=== PATIENT | female | born 1945 | race Caucasian/White ===

== ENCOUNTER 2020-09-25 16:42 | Outpatient (REF) | payer MEDICARE, SELFPAY | END 2020-09-25 16:43 | disposition home or self-care (01) | LOC: HO.LAB 16:42 | PROVIDERS: PCP Internal Medicine; Visit Provider Internal Medicine | DX: Z20.822 Contact with and (suspected) exposure to COVID-19 (principal) | CPT/HCPCS: 36415; C9803; U0003 ==

== ENCOUNTER 2023-06-30 15:02 | Outpatient (AMB) | payer MEDICARE, OTHER, SELFPAY ==
[2023-06-30 15:06] VITALS: RESP 14; BMI 35.7
--- NOTE | 2023-06-30 15:06 | MHC.OFFVIS ---
Intake Vital Signs 06/30/23 15:06 Height 5 ft 2 in Weight 195 lb BMI 35.7 Blood Pressure Location Lt radial Position Sitting Respiration 14 Intake Visit Reasons: Lumbar Stenosis and DJD Lumbar Spine Allergies No Known Allergies Allergy (Verified 06/30/23 15:07) Medication List - Last Reconciled 06/30/23 by Magali Verma LPN acetaminophen ER 1,300 mg PO Q8H PRN bupropion HCl 100 mg PO BID fluticasone propionate 50 mcg/actuation sprays intranasal lisinopril-hydrochlorothiazide 10-12.5 mg 1 tab PO DAILY tizanidine 2 mg PO DAILY PRN zolpidem 10 mg PO QPM HPI Lumbar Stenosis and DJD Lumbar Spine HPI Details 77-year-old female who presents today to the office for an evaluation of lumbar stenosis and DJD lumbar spine. The patient was referred by Dr. Moses. The patient reports back pain and knee pain. She states that her back pain radiates to the posterior side and down to the inguinal region. History is notable for prior lumbar spine surgery but over the years she has undergone numerous epidural steroid injections, facet interventions and trigger point injections with moderate relief. She used to have radiofrequency ablation so with excellent response at [facility]. At her most recent appointment with them, she was recommended spinal cord stimulator which she did not want to pursue and subsequently stopped seeing them. She is interested in resuming interventional therapy. She also has weakness in her knee for about a year now and is interested in options for her knee pain. She is using walker. Her groin pain worsens with lying down. Her last MRI scan was done at [facility]. It is not available for review today. 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 History is notable for craniotomy for AVM/aneurysm resection. [facility] Medical History (Updated 07/01/23 @ 11:14 by Alfonso Will MD) Insomnia Hypertension Asthma Surgical History (Updated 07/01/23 @ 11:14 by Alfonso Will MD) History of craniotomy Review of Systems Const All systems reviewed & are unremarkable except as noted in HPI and below Physical Exam Vital Signs: Last Vital Signs Resp 14 06/30/23 15:06 BMI result Body Mass Index 35.7 General: Appears afebrile. Alert and oriented. Mood and affect appropriate. Follows and participates in conversation appropriately. Respiratory effort is unlabored. Able to transition from sit to stand unassisted. Ambulates with bilaterally normal heel strike and toe off. Generalized tenderness to palpation overlying the lumbar spine, more pronounced towards the right side. There is a palpable soft tissue mass, potentially lipoma, overlying the right iliac fossa. It is exquisitely tender to palpation. Office Procedures Injection Trigger Point Multi Trigger point injection, ultrasound guided. Pre-procedure diagnosis: Myofascial pain Post-procedure diagnosis: Myofascial pain Site and number of trigger points: Right gluteus medius, gluteus gustavo, sacroiliac ligaments Solution: Total volume administered 10 ml (5 ml lidocaine 1% + 5 ml bupivacaine 0.25% mixed with Kenalog 40 mg). The procedure, its benefits, and its risks were explained to the patient and all questions were answered. A pulse oximeter monitor was attached and the patient was monitored throughout the procedure. Prior to the start of the procedure, a ?time out? was performed to confirm correct patient, procedure, and laterality. Trigger points were identified by manual palpation and marked. The skin was cleaned with Chloraprep. A 1.5 inch 25 G needle was used. The myofascial layers were identified using ultrasound and tender areas were injected under live ultrasound guidance. This process was repeated at each trigger point site. The patient tolerated the procedure well. The patient tolerated the procedure well, without complication. The patient denied any numbness, paresthesias, or weakness. Post-procedure vitals were recorded as part of the nursing discharge note in electronic medical record. Following a period of observation, the patient was discharged in stable condition with written discharge instructions. Note: An ultrasound image of the injection was taken and stored in the permanent record. Trigger Point Multiple: 14173- Trigger point injection =/>3 Results Reviewed Results Reviewed: No imaging is available for review. Assessment & Plan Assessment & Plan (1) Hip osteoarthritis: Code(s): M16.9 - Osteoarthritis of hip, unspecified (2) Spondylosis of lumbar spine: Code(s): M47.816 - Spondylosis without myelopathy or radiculopathy, lumbar region (3) Sacroiliac joint dysfunction: Code(s): M53.3 - Sacrococcygeal disorders, not elsewhere classified (4) Post laminectomy syndrome: Code(s): M96.1 - Postlaminectomy syndrome, not elsewhere classified (5) Myofascial pain syndrome: Code(s): M79.18 - Myalgia, other site Plan I ordered a x-ray of right hip for further evaluation of the hip osteoarthritis given her groin pain. Patient is status post trigger point injection, ultrasound guided, to tender points within the right iliac fossa. Patient tolerated procedure well. For her low back pain, we will schedule her for a bilateral diagnostic SIJ injection first. If the diagnostic SI joint injection is equivocal. will schedule her for a bilateral diagnostic L3-L4-L5 medial branch blocks for consideration of facet mediated pain. Discussed the risks and benefits of the procedure with the patient in detail. All questions were answered. The patient is on board with the plan. Justification for interventional therapy: ? Patient with average pain > 6/10 ? Patient has exhausted conservative therapy ? Patient unable to tolerate physical therapy due to pain Scribed for Dr. Will by Samm Aly, medical anthropology director, on 06/30/2023. I, Dr. Will, have personally reviewed and agree with the information entered by the scribe. Orders: Orders XR hip RT min 2V 06/30/23 M16.9 - Osteoarthritis of hip, unspecified Coding Level of Care Code New Pt Level 4 (05470) Diagnoses Hip osteoarthritis M16.9 Spondylosis of lumbar spine M47.816 Sacroiliac joint dysfunction M53.3 Post laminectomy syndrome M96.1 Myofascial pain syndrome M79.18 CPT Codes Details - Trigger Point Multiple: 85105- Trigger point injection =/>3 ([id number])
== END 2023-06-30 15:45 | disposition home or self-care (01) ==
PROVIDERS: PCP Internal Medicine; Visit Provider Internal Medicine
DX: M16.9 Osteoarthritis of hip, unspecified (principal); M47.816 Spondylosis without myelopathy or radiculopathy, lumbar region; M53.3 Sacrococcygeal disorders, not elsewhere classified; M96.1 Postlaminectomy syndrome, not elsewhere classified; M79.18 Myalgia, other site
CPT/HCPCS: 20553; 99204

== ENCOUNTER 2023-06-30 15:02 | Outpatient (REF) | payer MEDICARE, OTHER, SELFPAY ==
--- NOTE | ~2023-06-30 | XR_ITS ---
EXAMINATION: XR HIP, RIGHT CLINICAL INFORMATION: Chronic pain without injury. COMPARISON: None available. TECHNIQUE: AP and frog-leg lateral views of the right hip. FINDINGS: No fracture. Alignment is anatomic. Hip joint space is maintained. Soft tissues are unremarkable. XR/XR hip RT min 2V IMPRESSION: Normal right hip.
== END 2023-06-30 15:03 | disposition home or self-care (01) ==
LOC: HO.XRAY 15:02
PROVIDERS: PCP Internal Medicine; Visit Provider Internal Medicine
DX: M16.11 Unilateral primary osteoarthritis, right hip (principal); M79.18 Myalgia, other site; M47.816 Spondylosis without myelopathy or radiculopathy, lumbar region; M53.3 Sacrococcygeal disorders, not elsewhere classified; M96.1 Postlaminectomy syndrome, not elsewhere classified
CPT/HCPCS: 20553; 73502; J3301

== ENCOUNTER 2023-07-30 06:01 | Outpatient (REF) | payer MEDICARE, OTHER, SELFPAY ==
--- NOTE | ~2023-07-30 | FL_ITS ---
EXAMINATION: XR FLUOROSCOPY WITH IMAGES CLINICAL INFORMATION: Sacrococcygeal disorders, not elsewhere classified. COMPARISON: None available. TECHNIQUE: Fluoroscopy Supervised By: Dr. Alfonso Will. Fluoroscopy Time: 0.2 minutes. Cumulative Dose: 11.2 mGy. DAP: 1.06 Gycm2. Images: 4 FINDINGS: Images demonstrate needle placement over the bilateral sacrum. Surgical hardware seen in the lower lumbar sacral spine. FL/FL guidance in treatment room IMPRESSION: Fluoroscopy guidance for pain management procedure
== END 2023-07-30 06:02 | disposition home or self-care (01) ==
LOC: CF 06:01
PROVIDERS: Visit Provider Internal Medicine
DX: M53.3 Sacrococcygeal disorders, not elsewhere classified (principal); M17.12 Unilateral primary osteoarthritis, left knee
CPT/HCPCS: 27096; J1040; J2795; Q9967

== ENCOUNTER 2023-07-30 09:20 | Outpatient (AMB) | payer MEDICARE, OTHER, SELFPAY ==
--- OUTSIDE RECORDS SUMMARY | 2023-07-30 09:22 | XMS_ITS | Continuity of Care Document ---
Author Name Unknown Organization [facility] Address [address] [place] [address]- Care Team Providers Care Or Manager Name Role Phone Alfredo Rosado MD Primary Care Physician [id number] Date(s): 09/13/22 - 10/13/[facility] [address] [place] [address]- Allergies, Adverse Reactions, Alerts Substance Reaction Severity Status Adhesive Bandage Bee Stings Active Bee Stings Active Cats Active Dogs Active Medications acetaminophen/butalbital/caffeine 325 mg-50 mg-40 mg oral tablet 0 Refills, Maintenance, 08/29/22 14:31:00 EST, Partial fill upon patient request if the prescription is for a schedule II opioid drug. Start Date: 08/29/22 Status: Ordered atropine-diphenoxylate 0.025 mg-2.5 mg oral tablet Refills 0, Maintenance, 08/29/22 14:33:00 EST, Partial fill upon patient request if the prescription is for a schedule II opioid drug. Start Date: 08/29/22 Status: Ordered buPROPion 100 mg oral tablet 0 Refills, Maintenance, 08/29/22 14:31:00 EST, Partial fill upon patient request if the prescription is for a schedule II opioid drug. Start Date: 08/29/22 Status: Ordered chlordiazePOXIDE 25 mg oral capsule TAKE ONE CAPSULE BY MOUTH EVERY 8 HOURS NEEDED Start Date: 07/17/22 Status: Ordered diclofenac sodium 50 mg oral delayed release tablet 0 Refills, Maintenance, 08/29/22 14:33:00 EST, Partial fill upon patient request if the prescription is for a schedule II opioid drug. Start Date: 08/29/22 Status: Ordered doxycycline hyclate 100 mg oral tablet 0 Refills, Maintenance, 08/29/22 14:30:00 EST, Partial fill upon patient request if the prescription is for a schedule II opioid drug. Start Date: 08/29/22 Status: Ordered duloxetine 60 mg oral enteric coated capsule 0 Refills, Maintenance, 08/29/22 14:33:00 EST, Partial fill upon patient request if the prescription is for a schedule II opioid drug. Start Date: 08/29/22 Status: Ordered EpiPen 2-Ifeanyi = 0.3 mg, Intramuscular, Once, 0 Refills, Maintenance Start Date: 07/25/11 Status: Ordered gabapentin 300 mg oral capsule 1 capsule = 300 mg, By Mouth, 3 times a day, # 90 capsule, 1 Refills, Maintenance Start Date: 12/30/11 Status: Ordered levocetirizine 5 mg oral tablet 0 Refills, Maintenance, 08/29/22 14:31:00 EST, Partial fill upon patient request if the prescription is for a schedule II opioid drug. Start Date: 08/29/22 Status: Ordered Prempro 1 tablet, By Mouth, Daily, 0 Refills, Maintenance Start Date: 12/30/11 Status: Ordered Restasis 0.05% ophthalmic emulsion 1 drops, Eyes, Both, Maintenance, 07/17/22 11:32:00 EST, Partial fill upon patient request if the prescription is for a schedule II opioid drug. Start Date: 07/17/22 Status: Ordered tiZANidine 2 mg oral tablet Refills 0, Maintenance, 08/29/22 14:31:00 EST, Partial fill upon patient request if the prescription is for a schedule II opioid drug. Start Date: 08/29/22 Status: Ordered Tylenol 325 mg oral tablet 2 tablet, By Mouth, Every 4 hours, PRN for pain, # 120 tablet, 0 Refills, Maintenance, Tablet Start Date: 06/13/11 Status: Ordered zolpidem 10 mg oral tablet 1 tablet = 10 mg, By Mouth, Daily at bedtime, PRN for sleep, 0 Refills, Maintenance, 08/29/22 14:31:00 EST, Tablet, Partial fill upon patient request if the prescription is for a schedule II opioid drug. Start Date: 08/29/22 Status: Ordered Problem List Condition Confirmation Course Effective Dates Status Health St atus Informant Sacroiliac joint dysfunction of both sides Confirmed Active Obese class II Confirmed Active Patient Care team information Care Team Personnel Name: Alfredo Rosado MD Position: [facility] Outreach Member Role: PCP Address: Address: [address] [place] [address] [address] [place] [address]- Care Team Related Persons Name: MANDEEP CHOI Address: home [address] [place] [address] Name: PAO OLIVER Address: home [address] [place] [address]
--- OUTSIDE RECORDS SUMMARY | 2023-07-30 09:22 | XMS_ITS | Continuity of Care Document ---
Author Name Unknown Organization [facility] Address [address] [place] [address] [address], [address] [place] [address]- Care Team Providers Care Staff Training And Development Manager Name Role Phone Maurice Padilla MD Primary Care Phys[id number] - [facility]28[facility] [address] [place] [address] Drive, [address] [place], [place] [address] Attending Physician: Mayur Weinberg MD Referring Physician: Maurice Padilla MD Allergies, Adverse Reactions, Alerts Substance Reaction Severity Status Adhesive Bandage Bee Stings Active Bee Stings Active Cats Active Dogs Active Medications Abilify Tablet By Mouth, Daily, Maintenance, 07/02/11 16:12:51 Start Date: 07/02/11 Status: Ordered Aleve Caplet = 220 mg, By Mouth, Every 8 hours, 0 Refills, Maintenance Start Date: 06/13/11 Status: Ordered Butrans 5 mcg/hr transdermal film, extended release 1 patch, Intradermal, Every week, 0 Refills, Maintenance Start Date: 06/08/13 Status: Ordered EpiPen 2-Ifeanyi = 0.3 mg, Intramuscular, Once, 0 Refills, Maintenance Start Date: 07/25/11 Status: Ordered gabapentin 300 mg oral capsule 1 capsule = 300 mg, By Mouth, 3 times a day, # 90 capsule, 1 Refills, Maintenance Start Date: 12/30/11 Status: Ordered Hydrocodone = 5 mg, By Mouth, PRN Pain , Severe, 0 Refills, Maintenance Start Date: 06/08/13 Status: Ordered Prempro 1 tablet, By Mouth, Daily, 0 Refills, Maintenance Start Date: 12/30/11 Status: Ordered Tylenol 325 mg oral tablet 2 tablet, By Mouth, Every 4 hours, PRN for pain, # 120 tablet, 0 Refills, Maintenance, Tablet Start Date: 06/13/11 Status: Ordered Voltaren By Mouth, 0 Refills, Maintenance, 03/21/22 15:18:00 EDT, Partial fill upon patient request if the prescription is for a schedule II opioid drug. Start Date: 03/21/22 Status: Ordered Wellbutrin By Mouth, 0 Refills, Maintenance Start Date: 06/13/11 Status: Ordered Problem List Condition Effective Dates Status Health Status Inform ant Obese class II(Confirmed) Active Vital Signs Most recent to oldest [Reference Range]: 1 Height 160 cm (03/21/22 3:10 PM) Weight 95.5 kg (03/21/22 3:10 PM) Body Mass Index [18.5-24.99] 37.3 *>HHI* (03/21/22 3:10 PM)
--- OUTSIDE RECORDS SUMMARY | 2023-07-30 09:22 | XMS_ITS | Continuity of Care Document ---
Author Name Unknown Organization [facility] Address [address] [place] [address]- Care Team Providers Care Roving Court Reporter Name Role Phone Rama ROSARIO, Magdalena العراقي Primary Care Physician Encounter [facility] [id number] Date(s): 04/03/22 - 06/29/22 [facility] [address] [place] [address]- Attending Physician: Felisa Hoffmann MD Admitting Physician: Felisa Hoffmann MD Referring Physician: Maurice Pdailla MD Allergies, Adverse Reactions, Alerts Substance Reaction [...] Mouth, Daily, 0 Refills, Maintenance Start Date: 4/23/12 Status: Ordered Tylenol 325 mg oral tablet [...] Date: 06/13/11 Status: Ordered Problem List Condition Confirmation Course Effective Dates Status Health St atus Informant Obese class II Confirmed Active Patient Care team information Personnel Name: Rama ROSARIO, Magdalena العرايق Address: Address: [facility] [place], [place] [address]
--- OUTSIDE RECORDS SUMMARY | 2023-07-30 09:22 | XMS_ITS | Continuity of Care Document ---
Author Name Unknown Organization [facility] Address [address] [place] [address]- Care Team Providers Care Cold Roller Name Role Phone Maurice Padilla MD Primary Care Physician [phone] [id number] Date(s): 12/10/21 - 01/09/22 [facility] [place] [address] [place], [place] [address] Allergies, Adverse Reactions, Alerts Substance Reaction Severity [...] Maintenance, Tablet Start Date: 06/13/11 Status: Ordered Wellbutrin By Mouth, 0 Refills, Maintenance Start Date: 06/13/11 Status: Ordered
--- OUTSIDE RECORDS SUMMARY | 2023-07-30 09:22 | XMS_ITS | Continuity of Care Document ---
Author Name Unknown Organization [facility] Address [address] [place] [address]- Care Team Providers Care Florist Designer Name Role Phone Alfredo Rosado MD Primary Care Physician [phone] [place] [facility] [place] - 08/21/22 [facility] [address] [place] [address]- Allergies, Adverse Reactions, Alerts Substance Reaction Severity Status Adhesive Bandage Bee Stings Active Bee Stings Active Cats Active Dogs Active Medications chlordiazePOXIDE 25 mg oral capsule TAKE ONE CAPSULE BY MOUTH EVERY 8 HOURS NEEDED Start Date: 07/17/22 Status: Ordered EpiPen 2-Ifeanyi = 0.3 mg, Intramuscular, Once, 0 Refills, Maintenance Start Date: 07/25/11 Status: Ordered gabapentin 300 mg oral capsule 1 capsule = 300 mg, By Mouth, 3 times a day, # 90 capsule, 1 Refills, Maintenance Start Date: 12/30/11 Status: Ordered Prempro 1 tablet, By Mouth, Daily, 0 Refills, Maintenance Start Date: 12/30/11 Status: Ordered Restasis 0.05% ophthalmic emulsion 1 drops, Eyes, Both, Maintenance, 07/17/22 11:32:00 EST, Partial fill upon patient request if the prescription is for a schedule II opioid drug. Start Date: 07/17/22 Status: Ordered Tylenol 325 mg oral tablet 2 tablet, By Mouth, Every 4 hours, PRN for pain, # 120 tablet, 0 Refills, Maintenance, Tablet Start Date: 06/13/11 Status: Ordered Problem List Condition Confirmation Course Effective Dates Status Health St atus Informant Obese class II Confirmed Active Patient Care team information Care Team Personnel Name: Alfredo Rosado MD Position: S Outreach Member Role: PCP Address: Address: [address] [place] [address] [address] [place] [address]- Care Team Related Persons Name: MANDEEP CHOI Address: home [address] [place] [address] Name: PAO OLIVER Address: [address] [place] [address]
--- OUTSIDE RECORDS SUMMARY | 2023-07-30 09:22 | XMS_ITS | Continuity of Care Document ---
Author Name Unknown Organization [facility] Address [address] [place] [address]- Care Team Providers Care Aircraft Maintenance Technician Name Role Phone Alfredo Rosado MD Primary Care Physician [place] [facility] Date(s): 01/13/23 - 02/12/23 [facility] [address] [place] [address]- Attending Physician: Admtr, Isaias Allergies, Adverse Reactions, Alerts Substance Reaction Severity Status Adhesive Bandage Bee Stings Active Bee Stings Active Dogs Active Cats Active Medications acetaminophen/butalbital/caffeine 325 mg-50 mg-40 mg [...] Status: Ordered buPROPion 100 mg oral tablet TAKE ONE TABLET BY MOUTH TWICE A DAY Start Date: 01/13/23 Status: Ordered chlordiazePOXIDE 25 mg oral capsule TAKE ONE CAPSULE BY MOUTH EVERY 8 HOURS NEEDED Start Date: 07/17/22 Status: Ordered diclofenac 1% topical gel APPLY EXTERNALLY FOUR TIMES A DAY Start Date: 01/13/23 Status: Ordered diclofenac sodium 50 mg oral delayed release tablet 0 Refills, Maintenance, 08/29/22 14:33:00 EST, Partial fill upon patient request if the prescription is for a schedule II opioid drug. Start Date: 08/29/22 Status: Ordered EpiPen 2-Ifeanyi = 0.3 mg, Intramuscular, Once, 0 Refills, Maintenance Start Date: 07/25/11 Status: Ordered fluticasone 50 mcg/inh nasal spray APPLY TWO SPRAYS EVERY DAY IN EACH NOSTRIL Start Date: 01/13/23 Status: Ordered levocetirizine 5 mg oral tablet 0 Refills, Maintenance, 08/29/22 14:31:00 EST, Partial fill upon patient request if the prescription is for a schedule II opioid drug. Start Date: 08/29/22 Status: Ordered Mapap Arthritis Pain 650 mg oral tablet, extended release 2 tablet = 1,300 mg, By Mouth, Every 8 hours, PRN as needed for pain, # 24 tablet, 0 Refills, Maintenance, 12/04/22 15:46:00 EDT, ER Tablet, Partial fill upon patient request if the prescription is for a schedule II opioid drug. Start Date: 12/04/22 Status: Ordered Prempro 1 tablet, By Mouth, [...] opioid drug. Start Date: 08/29/22 Status: Ordered zolpidem 10 mg oral tablet [...] Confirmed Active Obese class II Confirmed Active Radiology * Event Display: MRI Spine, Non- Authored Date: Patient Care team information Care Team Personnel Name: Alfredo Rosado MD Position: S Outreach Member Role: PCP Address: Address: [address] [place] [address] [address] [place] [address]- Care Team Related Persons Name: MANDEEP CHOI Address: [address] [place] [address] Name: PAO OLIVER Address: [address] [place] [address]
--- OUTSIDE RECORDS SUMMARY | 2023-07-30 09:23 | XMS_ITS | Continuity of Care Document ---
Author Name Unknown Organization [facility] Address [address] [place] [address]- Care Team Providers Care Supervisor Hot Strip Mill Name Role Phone Alfredo Rosado MD Primary Care Physician [phone] En[place] [facility] [place] [id number] Date(s): 05/21/23 - 06/20/23 [facility] [address] [place] [address]- Allergies, Adverse Reactions, Alerts Substance Reaction Severity [...] Team Personnel Name: Alfredo Rosado MD Position: [facility] Outreach Member Role: PCP Address: Address: [address] [place] [address] [address] [place] [address]- Care Team Related Persons Name: MANDEEP CHOI Address: home [address] [place] [address] Name: PAO OLIVER Address: home [address] [place] [address]
--- OUTSIDE RECORDS SUMMARY | 2023-07-30 09:23 | XMS_ITS | Continuity of Care Document ---
Author Name Unknown Organization [facility] Address [address] [place] [address]- Care Team Providers Care Crm Marketing Executive Name Role Phone Maurice Padilla MD Primary Care Physician [phone] [id number] Date(s): 10/30/21 - 01/11/22 [facility] [place] [address] [place] [address]- Attending Physician: Betty Whitfield NP Allergies, Adverse Reactions, Alerts Substance Reaction Severity [...]
--- OUTSIDE RECORDS SUMMARY | 2023-07-30 09:23 | XMS_ITS | Continuity of Care Document ---
Author Name Unknown Organization [facility] Address [address] [place] [address]- Care Team Providers Care Bicycle Rental Clerk Name Role Phone Rama ROSARIO, Magdalena العراقي Primary Care Physician [facility] [id number] Date(s): 03/28/22 - 06/07/22 [facility] [address] [place] [address]- Attending Physician: Twin Torres MD Admitting Physician: Twin Torres MD Referring Physician: Mayur Weinberg MD Allergies, Adverse Reactions, Alerts Substance Reaction [...] team information Personnel Name: Rama ROSARIO, Magdalena العراقي Address: Address: [address] [place] [address]
--- OUTSIDE RECORDS SUMMARY | 2023-07-30 09:23 | XMS_ITS | Continuity of Care Document ---
Author Name Unknown Organization [facility] Address [address] [place] [address]- Care Team Providers Care Insurance Sales Supervisor Name Role Phone Alfredo Rosado MD Primary Care Physician [phone] [id number] Date(s): 08/13/22 - 09/12/22 [facility] [address] [place] [address]- Allergies, Adverse Reactions, Alerts Substance Reaction Severity [...] Team Personnel Name: Alfredo Rosado MD Position: [facility] Outreach Member Role: PCP Address: Address: [address] [place] [address] [address] [place] [address]- Care Team Related Persons Name: MANDEEP CHOI Address: [address] [place] [address] Name: PAO OLIVER Address: [address] [place] [address]
--- OUTSIDE RECORDS SUMMARY | 2023-07-30 09:23 | XMS_ITS | Continuity of Care Document ---
Author Name Unknown Organization [facility] Address [address] [place] [address] [address], [address] [place] [address]- Care Team Providers Care Wealth Management Advisor Name Role Phone Rama ROSARIO, Magdalena العراقي Primary Care Physician [phone] [place] [facility] [place]22 - 04/26/22 [facility] [address] [place] [address] Drive, [address] [place], [place] [address] Allergies, Adverse Reactions, Alerts Substance Reaction Severity [...]
--- OUTSIDE RECORDS SUMMARY | 2023-07-30 09:23 | XMS_ITS | Continuity of Care Document ---
Author Name Unknown Organization [facility] Address [address] [place] [address] [address], [address] [place] [address]- Care Team Providers Care Pile Driving Technician Name Role Phone Rama ROSARIO, Magdalena العراقي Primary Care Physician [id number] Date(s): 03/21/22 - 04/20/22 [facility] [address] [place] [address] Drive, [address] [place], [place] [address] Attending Physician: Admjeanine, [id number] Admitting Physician: Admtr, Isaias Referring Physician: Admtr, Ar8 Allergies, Adverse Reactions, Alerts Substance Reaction Severity Status Adhesive Bandage Bee Stings Active Bee Stings Active Dogs Active Cats Active Medications Abilify Tablet By Mouth, Daily, [...]
--- OUTSIDE RECORDS SUMMARY | 2023-07-30 09:23 | XMS_ITS | Continuity of Care Document ---
Author Name Unknown Organization [facility] Primary Car e [place] Address [address] [place] [address]- Care Team Providers Care Grain I Farmworker Name Role Phone Maurice Padilla MD Primary Care Physician Encounter [facility] NBR [id number] Date(s): 12/12/21 - 01/11/22 [facility] [place] [address] [place], [place] [address] Attending Physician: Isaias Jensen Admitting Physician: AdmIsaias solorzano Referring Physician: AdmtrIsaias Allergies, Adverse Reactions, Alerts Substance Reaction Severity [...]
--- OUTSIDE RECORDS SUMMARY | 2023-07-30 09:23 | XMS_ITS | Continuity of Care Document ---
Author Name Unknown Organization [facility] Address [address] [place] [address]- Care Team Providers Care Buggy Operator Name Role Phone Rama ROSARIO, Magdalena العراقي Primary Care Physician [phone] Encounter [facility] [id number] Date(s): 04/02/22 - 05/02/22 [facility] [address] [place] [address]- Allergies, Adverse Reactions, Alerts Substance Reaction Severity [...] Status Inform ant Obese class II(Confirmed) Active Care Team Personnel Name: Magdalena Ontiveros MD Address: [address] [place] [address]
--- OUTSIDE RECORDS SUMMARY | 2023-07-30 09:23 | XMS_ITS | Continuity of Care Document ---
Author Name Unknown Organization [facility] Address [address] [place] [address]- Care Team Providers Care Clerk Name Role Phone Alfredo Rosado MD Primary Care Physician [phone] Encounter [facility] Date(s): 02/18/23 - 03/20/23 [facility] [address] [place] [address]- Allergies, Adverse Reactions, Alerts Substance Reaction Severity [...] Team Personnel Name: Alfredo Rosado MD Position: [facility] Outreach Member Role: PCP Address: Address: [address] [place] [address] [address] [place] [address]- Care Team Related Persons Name: MANDEEP CHOI Address: home [address] [place] [address] Name: PAO OLIVER Address: home [address] [place] [address]
--- OUTSIDE RECORDS SUMMARY | 2023-07-30 09:23 | XMS_ITS | Continuity of Care Document ---
Author Name Unknown Organization [facility] Address [address] [place] [address]- Care Team Providers Care Polysomnographer Name Role Phone Alfredo Rosado MD Primary Care Physician [place] [facility] Date(s): 10/23/22 - 11/22/22 [facility] [address] [place] [address]- Allergies, Adverse Reactions, Alerts Substance Reaction Severity [...] 90 capsule, 1 Refills, Maintenance Start Date: 4/23/12 Status: Ordered levocetirizine 5 mg oral tablet [...] Team Personnel Name: Alfredo Rosado MD Position: [facility] Outreach Member Role: PCP Address: Address: [address] [place] [address] [address] [place] [address]- Care Team Related Persons Name: MANDEEP CHOI Address: home [address] [place] [address] Name: PAO OLIVER Address: home [address] [place] [address]
--- OUTSIDE RECORDS SUMMARY | 2023-07-30 09:23 | XMS_ITS | Continuity of Care Document ---
Author Name Unknown Organization [facility] Address [address] [place] [address]- Care Team Providers Care Program Evaluation Consultant Name Role Phone Alfredo Rosado MD Primary Care Physician [phone] Encounter [facility] Date(s): 10/21/22 - 11/20/22 [facility] [address] [place] [address]- Allergies, Adverse Reactions, Alerts Substance Reaction Severity [...] Team Personnel Name: Alfredo Rosado MD Position: [facility] Outreach Member Role: PCP Address: Address: [address] [place] [address] [address] [place] [address]- Care Team Related Persons Name: MANDEEP CHOI Address: home [address] [place] [address] Name: PAO OLIVER Address: home [address] [place] [address]
[2023-07-30 09:30] VITALS: BP 136/82; PULSE 72; RESP 16; O2SAT 98; BMI 35.7
--- NOTE | 2023-07-30 09:30 | A.OFFVIS_ITS ---
Intake Vital Signs 07/30/23 09:30 07/30/23 10:37 Height 5 ft 2 in 5 ft 2 in Weight 195 lb BMI 35.7 BP 136/82 132/84 Blood Pressure Location Lt brachial Lt brachial Position Sitting Sitting Respiration 16 16 Pulse 72 88 Pulse Source Pulse Oximeter Pulse Oximeter Pulse Oximetry (%) 98 95 Oxygen Delivery Method Room Air Room Air Comment Pre-Op Post-Op Intake Visit Reasons: maurice Dx SIJ inj/Left theraputic knee inj Allergies No Known Allergies Allergy (Verified 06/30/23 15:07) HPI maurice Dx SIJ inj/Left theraputic knee inj HPI Details Patient presents for scheduled procedure. Denies any recent cough, cold, infection, fever or other significant changes in medical history since last office visit. [facility] Medical History (Updated 07/30/23 @ 17:08 by Alfonso Will MD) Insomnia Hypertension Asthma Surgical History (Updated 07/01/23 @ 11:14 by Alfonso Will MD) History of craniotomy Physical Exam Vital Signs: Last Vital Signs Pulse 88 07/30/23 10:37 Resp 16 07/30/23 10:37 BP 132/84 07/30/23 10:37 Pulse Ox 95 07/30/23 10:37 Oxygen Delivery Method Room Air 07/30/23 10:37 BMI result Body Mass Index 35.7 Office Procedures Joint Injection/Drain Joint Injection/Drain Details: Sacroiliac Joint Injection, bilateral The procedure, its benefits, and its risks were explained and written informed consent was obtained from the patient. Immediately prior to starting the procedure, a time-out safety check was conducted. The patient's identi fication, procedure name, procedure site, and procedure laterality were confirmed with the patient. ? Patient was placed prone on the fluoroscopy table and the lumbosacral area was prepped using ChloraPrep and draped with sterile drapein standard fashion. The C-arm was rotated in a contralateral oblique fashion until the medial border of the iliac crest no longer foreshadowed the posterior sacroiliac joint line. The skin and subcutaneous tissue was anesthetized using 1 mL of 0.75% plain lidocaine with 1.5-inch 25-gauge needle in the middle region of the joint line.? A 3.5-inch 22-gauge spinal needle with small bend on the tip was slowly advanced towards the joint line, coaxial to the x-ray beam. Once bony content was obtained, the needle was easily slid into the intra-articular space.? Intra- articular needle position was confirmed using lateral fluoroscopy.? A total volume of 2 mL of solution containing 26 mg Depomedrol and rest 0.5% of ropivacaine was injected intra-articularly. The stylet was reinserted and needle was removed. The same procedure was repeated on the contralateral side. The patient tolerated the procedure well. Patient denied any lower extremity weakness or numbness. Patient was observed for 30 min and was discharged after fulfilling the standard discharge criteria. Coding 27038 - Sacroiliac Procedure code (CPT) selection complete Joint Injection/Drain Joint Injection/Drain Primary Site: left knee Prep: site was prepped using sterile technique Injected: DepoMedrol (26 mg), in the joint and other (2 mL 0.5% ropivacaine) Approach Used: anteromedial Procedure: The patient tolerated the procedure well Coding Details: No imaging was used for this procedure. Procedure code (CPT) selection complete Assessment & Plan Assessment & Plan (1) Sacroiliac joint dysfunction: Code(s): M53.3 - Sacrococcygeal disorders, not elsewhere classified (2) Osteoarthritis of left knee: Code(s): M17.12 - Unilateral primary osteoarthritis, left knee Plan Patient is status post bilateral intra-articular sacroiliac joint injections under fluoroscopy and left knee intra-articular injection based on manual palpation. Patient tolerated procedure well and was discharged home in stable condition with discharge instructions. All questions were answered. We will follow-up via telephone or in clinic to assess response to therapy. A follow-up appointment was made during today's visit. Orders: Orders FL guidance in treatment room Today M53.3 - Sacrococcygeal disorders, not elsewhere classified Coding Level of Care Code Procedure Only Diagnoses Sacroiliac joint dysfunction M53.3 Osteoarthritis of left knee M17.12 CPT Codes Coding - Joint 9: 34469 - Sacroiliac ([id number])
[2023-07-30 10:37] VITALS: BP 132/84; PULSE 88; RESP 16; O2SAT 95
== END 2023-07-30 10:42 | disposition home or self-care (01) ==
LOC: HO.PMCPRC 09:20
PROVIDERS: PCP Internal Medicine; Visit Provider Internal Medicine
DX: M53.3 Sacrococcygeal disorders, not elsewhere classified (principal); M17.12 Unilateral primary osteoarthritis, left knee
CPT/HCPCS: 27096

== ENCOUNTER 2023-08-04 15:26 | Outpatient (AMB) | payer MEDICARE, OTHER, SELFPAY ==
--- NOTE | 2023-08-04 15:27 | MHC.OFFVIS ---
Intake Vital Signs 08/04/23 15:29 Height 5 ft 2 in Weight 195 lb BMI 35.7 BP 120/61 Blood Pressure Location Rt radial Position Sitting Respiration 12 Pulse Source Pulse Oximeter Intake Visit Reasons: s/p maurice dx SIJ inj/Confirmed Allergies No Known Allergies Allergy (Verified 08/04/23 15:33) HPI s/p maurice dx SIJ inj/Confirmed HPI Details 77-year-old female who presents today to the office for a status post bilateral diagnostic SIJ injection. The patient reports 90% relief following the procedure for back pain for 2-3 days before her pain started coming back. She has pain in her buttock region. She is not able to stand or sleep straight. Her left knee pain had improved. Her right knee is bothersome. She is unable to stand. She is able to lay down on the bed without any pain. She had a left Fry's cyst that was drained, but her pain has started worsening since. Past procedures: 07/30/23: Diagnostic Sacroiliac Joint Injection, bilateral: 90% relief for 2 days. 06/30/23: Trigger point injection: % relief. [facility] Medical History (Updated 08/07/23 @ 12:39 by Alfonso Will MD) Insomnia Hypertension Asthma Surgical History (Updated 07/01/23 @ 11:14 by Alfonso Will MD) History of craniotomy Review of Systems Const All systems reviewed & are unremarkable except as noted in HPI and below Physical Exam Vital Signs: Last Vital Signs Resp 12 08/04/23 15:29 BP 120/61 08/04/23 15:29 BMI result Body Mass Index 35.7 General: Appears afebrile. Alert and oriented. Mood and affect appropriate. Follows and participates in conversation appropriately. Respiratory effort is unlabored. Able to transition from sit to stand unassisted. Ambulates with bilaterally normal heel strike and toe off. Office Procedures Joint Injection/Drain Joint Injection/Drain Details: Right knee intraarticular injection Primary Site: right knee Prep: site was prepped using sterile technique Injected: 40 mg of, Kenalog, with 3 mL of, 1% plain lidocaine and in the joint Approach Used: anteromedial Procedure: The patient tolerated the procedure well Coding 27617 - Large joint Procedure code (CPT) selection complete Results Reviewed Results Reviewed: No imaging is available for review. 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 Patient tolerated procedure well and was discharged home in stable condition with discharge instructions. All questions were answered. For her bilateral sacroiliac joint pain, I discussed bilateral cluneal nerve stimulation therapy. This is especially important since a want to minimize her total steroid intake in the setting of multiple pain generators. I will refer her for psychology clearance. Once we receive psychology clearance we will schedule her for a trial of bilateral cluneal nerve stimulators. If these are helpful we will proceed with implant. If the cluneal nerve stimulation is not helpful, we can consider other therapeutic options for sacroiliac joint related pain. Scribed for Dr. Will by Samm Aly, medical staff services coordinator, on 08/04/2023. I, Dr. Will, have personally reviewed and agree with the information entered by the scribe. Coding Level of Care Code Est Pt Level 4 (91176) Diagnoses Sacroiliac joint dysfunction M53.3 Osteoarthritis of knees, bilateral M17.0 Cluneal neuropathy G58.8 CPT Codes Coding - 21289 Large joint: 11569 - Large joint ([id number])
[2023-08-04 15:29] VITALS: BP 120/61; RESP 12; BMI 35.7
== END 2023-08-04 16:01 | disposition home or self-care (01) ==
PROVIDERS: PCP Internal Medicine; Visit Provider Internal Medicine
DX: M53.3 Sacrococcygeal disorders, not elsewhere classified (principal); M17.0 Bilateral primary osteoarthritis of knee; G58.8 Other specified mononeuropathies
CPT/HCPCS: 99214

== ENCOUNTER → 2023-08-04 15:26 | Outpatient (BNVA) | payer MEDICARE, OTHER, SELFPAY | PROVIDERS: PCP Internal Medicine; Visit Provider Internal Medicine | DX: M17.0 Bilateral primary osteoarthritis of knee (principal); M53.3 Sacrococcygeal disorders, not elsewhere classified; G58.8 Other specified mononeuropathies | CPT/HCPCS: 20610; J0665; J3301 ==

== ENCOUNTER 2023-09-12 11:00 | Outpatient (AMB) | payer MEDICARE, OTHER, SELFPAY ==
--- NOTE | 2023-09-12 11:09 | MHC.OFFVIS ---
Intake Vital Signs 09/12/23 11:11 Height 5 ft 2 in Weight 195 lb BMI 35.7 Blood Pressure Location Rt brachial Position Sitting Respiration 12 Pulse 61 Pulse Source Pulse Oximeter Pulse Oximetry (%) 96 Oxygen Delivery Method Room Air Intake Visit Reasons: CONTINUOS PAIN BACK OF LEFT KNEE Allergies No Known Allergies Allergy (Verified 09/12/23 11:13) Medication List - Last Reconciled 09/12/23 by Magali Verma LPN acetaminophen ER 1,300 mg PO Q8H PRN bupropion HCl 100 mg PO BID fluticasone propionate 50 mcg/actuation sprays intranasal lisinopril-hydrochlorothiazide 10-12.5 mg 1 tab PO DAILY tizanidine 2 mg PO DAILY PRN zolpidem 10 mg PO QPM HPI CONTINUOS PAIN BACK OF LEFT KNEE HPI Details 77-year-old female who presents today to the office for a continuous pain in the back of the left knee. The patient reports pain in the back and left knee. She reports radiating back pain down to her leg when bending down. She has a history of scoliosis. She has not completed psychological clearance yet. She had multiple back surgeries in the past. We reviewed her MRI scan results. Past procedures: 08/04/23: Right knee intraarticular injection: % relief. 07/30/23: Diagnostic Sacroiliac Joint Injection, bilateral: 90% relief for 2 days. 06/30/23: Trigger point injection: % relief. [facility] Medical History (Updated 08/07/23 @ 12:39 by Alfonso Will MD) Insomnia Hypertension Asthma Surgical History (Updated 07/01/23 @ 11:14 by Alfonso Will MD) History of craniotomy Review of Systems Const All systems reviewed & are unremarkable except as noted in HPI and below Physical Exam Vital Signs: Last Vital Signs Pulse 61 09/12/23 11:11 Resp 12 09/12/23 11:11 Pulse Ox 96 09/12/23 11:11 Oxygen Delivery Method Room Air 09/12/23 11:11 BMI result Body Mass Index 35.7 General: Appears afebrile. Alert and oriented. Mood and affect appropriate. Follows and participates in conversation appropriately. Respiratory effort is unlabored. Able to transition from sit to stand unassisted. Ambulates with bilaterally normal heel strike and toe off. Ultrasound exam of the knee did not reveal any obvious collections or Fry's cysts. Results Reviewed Results Reviewed: No imaging is available for review. Assessment & Plan Assessment & Plan (1) Post laminectomy syndrome: Code(s): M96.1 - Postlaminectomy syndrome, not elsewhere classified (2) Osteoarthritis of knees, bilateral: Code(s): M17.0 - Bilateral primary osteoarthritis of knee Plan Pain symptoms could be secondary to post-laminectomy syndrome or isolated to the left knee. Discussed temporary nerve stimulator for isolated knee pain vs. spinal cord stimulator for post-laminectomy syndrome and possible lumbar radiculitis presenting as posterior knee pain. Will place a referral for psychology clearance. Once we have received psychology clearance, we will plan for trial of spinal cord stimulator ([employer]). The patient will receive a call from [facility] for the psychology assessment. Scribed for Dr. Will by Samm Aly, claim review medical director, on 09/12/2022. I, Dr. Will, have personally reviewed and agree with the information entered by the scribe. Coding Level of Care Code Est Pt Level 4 (16064) Diagnoses Post laminectomy syndrome M96.1 Osteoarthritis of knees, bilateral M17.0
[2023-09-12 11:11] VITALS: PULSE 61; RESP 12; O2SAT 96; BMI 35.7
== END 2023-09-12 11:40 | disposition home or self-care (01) ==
PROVIDERS: PCP Internal Medicine; Visit Provider Internal Medicine
DX: M96.1 Postlaminectomy syndrome, not elsewhere classified (principal); M17.0 Bilateral primary osteoarthritis of knee
CPT/HCPCS: 99214

== ENCOUNTER → 2023-09-12 11:00 | Outpatient (BNVA) | payer MEDICARE, OTHER, SELFPAY | PROVIDERS: PCP Internal Medicine; Visit Provider Internal Medicine | DX: M96.1 Postlaminectomy syndrome, not elsewhere classified (principal); M17.0 Bilateral primary osteoarthritis of knee | CPT/HCPCS: 99212 ==

== ENCOUNTER 2023-11-07 11:28 | Outpatient (AMB) | payer MEDICARE, OTHER, SELFPAY ==
[2023-11-07 11:45] VITALS: BP 133/79; PULSE 57; RESP 12; O2SAT 98; BMI 35.7
--- NOTE | 2023-11-07 11:45 | A.OFFVIS_ITS ---
Intake Vital Signs 11/07/23 11:45 Height 5 ft 2 in Weight 195 lb BMI 35.7 BP 133/79 Blood Pressure Location Lt brachial Position Sitting Respiration 12 Pulse 57 Pulse Source Pulse Oximeter Pulse Oximetry (%) 98 Oxygen Delivery Method Room Air Intake Visit Reasons: Follow Up Back Pain Allergies No Known Allergies Allergy (Verified 09/12/23 11:13) HPI Follow Up Back Pain HPI Details 77-year-old female who presents today to the office for a follow-up back pain. She reports back pain. She describes it as shooting pain down to the leg. She reports worsening of the knee and foot pain. She had had a SIJ injection in the past with good relief. She received an injection in her left arm by Dr. Escamilla, and an x-ray showed arthritis. She also received an injection in the knee. She is interested in repeating the injections for knee pain and back pain. She had not received any gel injections in the past. She saw the vascular surgeon about two years ago. Past procedures: 08/04/23: Right knee intraarticular inje ction: % relief. 07/30/23: Diagnostic Sacroiliac Joint In jection, bilateral: 90% relief for 2 days. 06/30/23: Trigger point injection: % rel ief. [facility] Medical History (Updated 08/07/23 @ 12:39 by Alfonso Will MD) Insomnia Hypertension Asthma Surgical History (Updated 07/01/23 @ 11:14 by Alfonso Will MD) History of craniotomy Review of Systems Const All systems reviewed & are unremarkable except as noted in HPI and below Physical Exam Vital Signs: Last Vital Signs Pulse 57 11/07/23 11:45 Resp 12 11/07/23 11:45 BP 133/79 11/07/23 11:45 Pulse Ox 98 11/07/23 11:45 Oxygen Delivery Method Room Air 11/07/23 11:45 BMI result Body Mass Index 35.7 General: Appears afebrile. Alert and oriented. Mood and affect appropriate. Follows and participates in conversation appropriately. Respiratory effort is unlabored. Able to transition from sit to stand unassisted. Ambulates with bilaterally normal heel strike and toe off. Severe medial tenderness on both knees. Office Procedures Joint Injection/Drain Joint Injection/Drain Details: Bilateral intraarticular Kenalog injections Primary Site: right knee Secondary Site: left knee Prep: site was prepped using aseptic technique and site was prepped using sterile technique Injected: 20 mg of (on each side), Kenalog and in the joint Approach Used: anteromedial Procedure: The patient tolerated the procedure well Coding 34068 - Large joint (bilateral) Procedure code (CPT) selection complete Results Reviewed Results Reviewed: No imaging is available for review. Assessment & Plan Assessment & Plan (1) Osteoarthritis of knees, bilateral: Code(s): M17.0 - Bilateral primary osteoarthritis of knee Plan Patient is status post bilateral intraarticular Kenalog injections today. Patient tolerated procedure well and was discharged home in stable condition with discharge instructions. All questions were answered. We will consider Durolane injection in the future for knee pain secondary to osteoarthritis. Scribed for Dr. Will by Samm Aly, medical accounting clerk, on 11/07/2023. I, Dr. Will, have personally reviewed and agree with the information entered by the scribe. Coding Level of Care Code Procedure Only Diagnoses Osteoarthritis of knees, bilateral M17.0 CPT Codes Coding - 02787 Large joint: 73998 - Large joint ([id number])
== END 2023-11-07 12:06 | disposition home or self-care (01) ==
PROVIDERS: PCP Internal Medicine; Visit Provider Internal Medicine
DX: M17.0 Bilateral primary osteoarthritis of knee (principal)
CPT/HCPCS: 20610

== ENCOUNTER → 2023-11-07 11:28 | Outpatient (BNVA) | payer MEDICARE, OTHER, SELFPAY | PROVIDERS: PCP Internal Medicine; Visit Provider Internal Medicine | DX: M17.0 Bilateral primary osteoarthritis of knee (principal) | CPT/HCPCS: 20610; J2795; J3301 ==

== ENCOUNTER 2023-11-27 06:07 | Outpatient (REF) | payer MEDICARE, OTHER, MEDICAID, SELFPAY ==
--- NOTE | ~2023-11-27 | FL_ITS ---
EXAMINATION: XR FLUOROSCOPY WITH IMAGES CLINICAL INFORMATION: Sacrococcygeal disorders, not elsewhere calcified. COMPARISON: Intraoperative fluoroscopy dated 07/30/2023; right hip radiographs dated 06/30/2023. TECHNIQUE: Fluoroscopy Supervised By: Dr. Saira Mariscal. Fluoroscopy Time: 0.2 minutes. Cumulative Dose: 9.94 mGy. DAP: 0.101 mGym2. Images: 4. FINDINGS: The submitted images show an injection needles positioned in the vicinity of the bilateral sacroiliac joints. FL/FL guidance in treatment room IMPRESSION: Intraoperative fluoroscopic guidance is provided during bilateral sacroiliac joint pain management procedures. Please see the patient's Operative Report for full procedural details.
== END 2023-11-27 06:08 | disposition home or self-care (01) ==
LOC: CF 06:07
PROVIDERS: Visit Provider Internal Medicine
DX: M53.3 Sacrococcygeal disorders, not elsewhere classified (principal)
CPT/HCPCS: 27096; J2795; J3301

== ENCOUNTER 2023-11-27 10:22 | Outpatient (AMB) | payer MEDICARE, OTHER, SELFPAY ==
--- NOTE | 2023-11-27 10:21 | A.OFFVIS_ITS ---
Intake Vital Signs 11/27/23 10:22 11/27/23 10:58 Height 5 ft 2 in Weight 195 lb BMI 35.7 BP 138/70 126/84 Blood Pressure Location Lt brachial Lt brachial Position Sitting Sitting Respiration 16 18 Pulse 56 66 Pulse Source Pulse Oximeter Pulse Oximeter Pulse Oximetry (%) 99 97 Oxygen Delivery Method Room Air Room Air Comment Pre-Op Post-Op Intake Visit Reasons: maurice 1/2 dose theraputic SIJ inj Allergies No Known Allergies Allergy (Verified 09/12/23 11:13) HPI maurice 1/2 dose theraputic SIJ inj HPI Details Patient presents for scheduled procedure. Denies any recent cough, cold, infection, fever or other significant changes in medical history since last office visit. [facility] Medical History (Updated 08/07/23 @ 12:39 by Alfonso Will MD) Insomnia Hypertension Asthma Surgical History (Updated 07/01/23 @ 11:14 by Alfonso Will MD) History of craniotomy Physical Exam Vital Signs: Last Vital Signs Pulse 66 11/27/23 10:58 Resp 18 11/27/23 10:58 BP 126/84 11/27/23 10:58 Pulse Ox 97 11/27/23 10:58 Oxygen Delivery Method Room Air 11/27/23 10:58 BMI result Body Mass Index 35.7 Office Procedures Joint Injection/Drain Joint Injection/Drain Details: Sacroiliac Joint Injection, Bilateral The procedure, its benefits, and its risks were explained and written informed consent was obtained from the patient. Immediately prior to starting the procedure, a time-out safety check was conducted. The patient's identification, procedure name, procedure site, and procedure laterality were confirmed with the patient. ? Patient was placed prone on the fluoroscopy table and the lumbosacral area was prepped using ChloraPrep and draped with sterile drapein standard fashion. The C-arm was rotated in a contralateral oblique fashion until the medial border of the iliac crest no longer foreshadowed the posterior sacroiliac joint line. The skin and subcutaneous tissue was anesthetized using 1 mL of 0.75% plain lidocaine with 1.5-inch 25-gauge needle in the middle region of the joint line.?A 3.5-inch 22-gauge spinal needle with small bend on the tip was slowly advanced towards the joint line, coaxial to the x-ray beam. Once bony content was obtained, the needle was easily slid into the intra-articular space.?Intra- articular needle position was confirmed using lateral fluoroscopy.? A total volume of 2.5mL of solution containing 20 mg triamcinolone and rest 0.5% of ropivacaine was injected intra-articularly. The stylet was reinserted and needle was removed. The same procedure was then repeated on the other side. The patient tolerated the procedure well. Patient denied any lower extremity weakness or numbness. Patient was observed for 30 min and was discharged after fulfilling the standard discharge criteria. Coding 29979 - Sacroiliac (Bilateral) Procedure code (CPT) selection complete Assessment & Plan Assessment & Plan (1) Sacroiliac joint dysfunction: Code(s): M53.3 - Sacrococcygeal disorders, not elsewhere classified Plan Patient is status post bilateral intra-articular Kenalog injection to the sacroiliac joints. Patient tolerated procedure well and was discharged home in stable condition with discharge instructions. All questions were answered. We will follow-up via telephone or in clinic to assess response to therapy. A follow-up appointment was made during today's visit. Orders: Orders FL guidance in treatment room Today M53.3 - Sacrococcygeal disorders, not elsewhere classified Coding Level of Care Code Procedure Only Diagnoses Sacroiliac joint dysfunction M53.3 CPT Codes Coding - Joint 9: 95276 - Sacroiliac ([id number])
[2023-11-27 10:22] VITALS: BP 138/70; PULSE 56; RESP 16; O2SAT 99; BMI 35.7
[2023-11-27 10:58] VITALS: BP 126/84; PULSE 66; RESP 18; O2SAT 97
== END 2023-11-27 10:59 | disposition home or self-care (01) ==
LOC: HO.PMCPRC 10:22
PROVIDERS: PCP Internal Medicine; Visit Provider Internal Medicine
DX: M53.3 Sacrococcygeal disorders, not elsewhere classified (principal)
CPT/HCPCS: 27096

== ENCOUNTER 2024-01-01 06:17 | Outpatient (REF) | payer MEDICARE, OTHER, SELFPAY | END 2024-01-01 06:18 | disposition home or self-care (01) | LOC: CF 06:17 | PROVIDERS: Visit Provider Internal Medicine | DX: Z13.89 Encounter for screening for other disorder (principal) ==

== ENCOUNTER 2024-01-08 06:14 | Outpatient (REF) | payer MEDICARE, OTHER, SELFPAY | END 2024-01-08 06:15 | disposition home or self-care (01) | LOC: CF 06:14 | PROVIDERS: Visit Provider Internal Medicine | DX: Z13.89 Encounter for screening for other disorder (principal) ==